=== PATIENT | female | born 1945 | race Caucasian/White ===

== ENCOUNTER 2021-09-17 14:32 | Outpatient (CLI) | payer MEDICARE, OTHER, SELFPAY ==
--- NOTE | ~2021-09-17 | XR_ITS ---
XR knee RT 3V 09/17/2021 15:11 Indication: Right knee pain Procedure: 3 views right knee Comparison: No prior studies for comparison. Findings: There is mild patellofemoral compartment osteoarthritis. There is anatomic alignment. No fr acture, subluxation or dislocation. No significant joint effusion. No foreign bodies. Impression: 1: Mild patellofemoral compartment osteoarthritis. Reviewed, dictated and finalized at location A. Impression: 1: Mild patellofemoral compartment osteoarthritis.
--- NOTE | ~2021-09-17 | XR_ITS ---
XR hip RT min 2V 09/17/2021 15:11 Indication: Right hip pain Procedure: 2 views right hip Comparison: No prior studies for comparison. Findings: There is severe osteoarthritis of the right hip. No fracture or traumatic malalignment. The re is extensive atherosclerosis. There is remodeling of the acetabulum. Impression: 1: Severe osteoarthritis of the right hip. Reviewed, dictated and finalized at location A. Impression: 1: Severe osteoarthritis of the right hip.
--- NOTE | ~2021-09-17 | XR_ITS ---
XR lumbar spine 2-3V 09/17/2021 15:11 Indication: Back pain Procedure: 3 views lumbar spine Comparison: No prior studies for comparison. Findings: There is dextroscoliosis centered at L3-4. There is significant loss of disc height at all lumbar levels most advanced at L4-5. There is grade 1 degenerative spondylolisthesis at L4-5. Sacral foramen are symmetric. Pedicles intact. No acute fracture or traumatic malalignment. There is atheros clerosis of the aorta. Impression: 1: Severe lumbar spondylosis. Reviewed, dictated and finalized at location A. Impression: 1: Severe lumbar spondylosis.
== END 2021-09-17 14:33 | disposition home or self-care (01) ==
PROVIDERS: PCP Internal Medicine; Visit Provider Nurse Practitioner
DX: M17.11 Unilateral primary osteoarthritis, right knee (principal); M16.11 Unilateral primary osteoarthritis, right hip; M47.896 Other spondylosis, lumbar region
CPT/HCPCS: 72100; 73502; 73562